=== PATIENT | female | born 1970 | race Caucasian/White ===

== ENCOUNTER 2017-06-28 20:21 | Inpatient (IN) | payer BC ==
[~2017-06-28] VITALS: Ht 157.5 cm; Wt 64.0 kg
[~2017-06-28 20:21] MED LIST: ALLO100T PO; ASPI81TA3 PO; ATOR10TA65 PO; CITR473S3 PO; CLON-379 PO; ISOS30TA PO
--- NOTE | 2017-06-29 01:35 | ERD ---
ER Documentation Chief Complaint Chief Complaint sent by outside doctor to evaluate abnormal lab results, hx- severe anemia, HPI The patient is a 47-year-old female, presenting to the ER because of abnormal hemoglobin 6.7 and high creatinine 12.3 from the blood drawn on June 26, 2017. She was sent to the ER by her physician yesterday for further evaluation. She complains of tiredness for the last 3 months, denies syncope, near syncope, neck pain, chest pain, abdominal pain, vomiting, dysuria, diarrhea , hematuria, hematochezia. She does not smoke nor drink Past medical history: Hypertension, gout, asthma, chronic kidney disease, dyslipidemia, anemia next Past surgical history one , cholecystectomy ROS All systems reviewed and are negative except as per history of present illness. Medications Home Meds Reported Medications Acetaminophen* (Acetaminophen*) 500 MG Extra Strength Tablet, 500 MG PO Q4H Y for PAIN AND OR ELEVATED TEMP, TAB 06/29/17 Discontinued Reported Medications Clonidine Hcl* (Clonidine Hcl*) 0.1 Mg Tab, 0.1 MG PO TID, TAB 08/03/14 Allopurinol* (Allopurinol*) 100 Mg Tablet, 100 MG PO DAILY, TAB 08/03/14 Atorvastatin Calcium (Atorvastatin Calcium) 10 Mg Tab, 5 MG PO HS, TAB 08/03/14 Citric Acid/Sodium Citrate (Cytra-2 Oral Solution) 473 Ml Solution, 60 ML PO 08/03/14 Discontinued Scripts Isosorbide Mononitrate* (Imdur*) 30 Mg Tabsr, 30 MG PO HS for 60 Days Prov:ANISHA PANDEY 08/04/14 Aspirin (Aspirin) 81 Mg Chew, 81 MG PO DAILY for 60 Days Prov:ANISHA PANDEY 08/04/14 Allergies Allergies: Coded Allergies: No Known Allergies (Unverified Allergy, Unknown, 06/29/17) PMhx/Soc History of Surgery: Yes (CSECTION, BARRON. EAR TUBES) Anesthesia Reaction: No Hx Neurological Disorder: No Hx Respiratory Disorders: Yes (ASTHMA) Hx Cardiac Disorders: Yes (HTN) Hx Psychiatric Problems: No Hx Miscellaneous Medical Probl: Yes (CKD) Hx Alcohol Use: No Hx Substance Use: No Hx Tobacco Use: No Physical Exam Vitals Vital Signs Date Time Temp Pulse Resp B/P Pulse Ox O2 Delivery O2 Flow Rate FiO2 06/29/17 02:14 97.8 105 19 138/86 100 06/29/17 02:14 Nasal Cannula 06/28/17 20:24 97.8 75 20 164/81 100 Physical Exam Const: No acute distress. Head: Atraumatic. Eyes: Normal Conjunctiva. ENT: Normal External Ears, Nose and Mouth. Neck: Full range of motion. No meningismus. Resp: Clear to auscultation bilaterally. Cardio: Regular rate and rhythm. Abd: Soft, non distended, normal bowel sounds, non tender. Skin: No petechiae or rashes. Back: No midline or flank tenderness. Ext: No cyanosis, or edema. Neur: Awake and alert. No focal deficit Psych: Normal Mood and Affect. Result Diagram: 06/29/1715106/29/17151 Results 24 hrs Laboratory Tests Test 06/29/17 01:52 White Blood Count 8.610^3/ul Red Blood Count 2.1810^6/ul Hemoglobin 6.8g/dl Hematocrit 21.1% Mean Corpuscular Volume 96.8fl Mean Corpuscular Hemoglobin 31.2pg Mean Corpuscular Hemoglobin Concent 32.2g/dl Red Cell Distribution Width 13.6% Platelet Count 62860^3/UL Mean Platelet Volume 10.4fl Neutrophils % 67.0% Lymphocytes % 25.7% Monocytes % 4.0% Eosinophils % 2.7% Basophils % 0.3% Nucleated Red Blood Cells % 0.0/100WBC Neutrophils # 5.810^3/ul Lymphocytes # 2.210^3/ul Monocytes # 0.310^3/ul Eosinophils # 0.210^3/ul Basophils # 0.010^3/ul Nucleated Red Blood Cells # 0.010^3/ul Prothrombin Time 14.1Sec Prothrombin Time Ratio 1.1 INR International Normalized Ratio 1.08 Activated Partial Thromboplast Time 29.2Sec Sodium Level 148mmol/L Potassium Level 3.9mmol/L Chloride Level 114mmol/L Carbon Dioxide Level 11mmol/L Anion Gap 27 Blood Urea Nitrogen 96mg/dl Creatinine 14.27mg/dl Glucose Level 93mg/dl Calcium Level 5.3mg/dl Total Bilirubin 0.0mg/dl Direct Bilirubin 0.00mg/dl Indirect Bilirubin 0.0mg/dl Aspartate Amino Transf (AST/SGOT) 18IU/L Alanine Aminotransferase (ALT/SGPT) 23IU/L Alkaline Phosphatase 148IU/L Total Protein 8.7g/dl Albumin 4.5g/dl Globulin 4.20g/dl Albumin/Globulin Ratio 1.07 Procedures/MDM EKG: Read by emergency physician Rate/Rhythm: Normal Sinus Rhythm 65 beats/min QRS, ST, T-waves: No ST elevation, no T inversion, Prolonged QT Impression: Abnormal EKG MEDICAL MAKING DECISION: The patient is a 39-year-old female, presenting with acute on chronic kidney disease, severe anemia, hypocalcemia, hypernatremia. She was treated with 2 unit of packed red blood cell. The differential diagnoses considered include but are not limited to gastritis, peptic ulcer disease, esophageal varices, Janine-Armenta tear, carcinoma, polyp, hemorrhoid, fissure, diverticulosis, angiodysplasia. Departure Diagnosis: Primary Impression: Anemia Additional Impressions: Acute renal failure superimposed on chronic kidney disease Hypocalcemia Hypernatremia Condition: Stable Comments I discussed the findings with the patient. I discussed the patient with the on- call hospitalist Dr. Artis at 2:55 AM who was made aware of the lab, the treatment, the patient condition. The patient is admitted to [facility] Frazier MD Jun 29, 2017 01:35
[2017-06-29 02:07] LABS: ABNORMAL IP MESSAGE 1; BASOPHILS % 0.3 % (0.0-2.0); EOSINOPHILS # 0.2 10^3/ul (0.0-0.5); EOSINOPHILS % 2.7 % (0.0-7.0); HEMATOCRIT 21.1 % (37.0-47.0); LYMPHOCYTES # 2.2 10^3/ul (0.8-2.9); LYMPHOCYTES % 25.7 % (15.0-51.0); MEAN CORPUSCULAR HEMOGLOBIN 31.2 pg (29.0-33.0); MEAN CORPUSCULAR HGB CONC 32.2 g/dl (32.0-37.0); MEAN CORPUSCULAR VOLUME 96.8 fl (82.0-101.0); MEAN PLATELET VOLUME 10.4 fl (7.4-10.4); MONOCYTE # 0.3 10^3/ul (0.3-0.9); NEUTROPHIL # 5.8 10^3/ul (1.6-7.5); PLATELET COUNT 152 10^3/UL (140-415); RED BLOOD COUNT 2.18 10^6/ul (4.20-5.40); RED CELL DISTRIBUTION WIDTH 13.6 % (11.5-14.5); WHITE BLOOD COUNT 8.6 10^3/ul (4.8-10.8)
[2017-06-29 02:16] LABS: HEMOGLOBIN 6.8 g/dl (12.0-16.0); POSITIVE DIFF @See below
[2017-06-29 02:26] LABS: PT RATIO 1.1
[2017-06-29 02:28] LABS: PARTIAL THROMBOPLASTIN TIME 29.2 Sec (25.0-35.0)
[2017-06-29 02:29] LABS: ALBUMIN 4.5 g/dl (3.3-4.9); ALBUMIN/GLOBULIN RATIO 1.07; POTASSIUM 3.9 mmol/L (3.5-5.1); TOTAL PROTEIN 8.7 g/dl (6.1-8.1)
[2017-06-29 02:36] LABS: CALCIUM 5.3 mg/dl (8.4-10.2)
[2017-06-29 02:38] LABS: CREATININE 14.27 mg/dl (0.44-1.00)
[2017-06-29 02:46] LABS: INR 1.08; PROTIME 14.1 Sec (12.2-14.2)
[2017-06-29] MEDS ORDERED: ACET-141 PO (02:46)
[2017-06-29 03:28] VITALS: TEMP 97.8
[2017-06-29 03:54] VITALS: Ht 157.5 cm; Wt 64.0 kg
[2017-06-29 04:40] VITALS: BP 131/69; PULSE 70
[2017-06-29] MEDS ORDERED: ACETAMINOPHEN 325 MG TAB PO PRN (06:00)
[2017-06-29] MEDS ORDERED: CALCIUM GLUCONATE 10% 2 GM in SOD CHLORIDE 0.9% 100 ML IVPB ONE (06:00)
[2017-06-29] MEDS ORDERED: NACL 0.9% 3 ML SYG IV SCH (06:00)
[2017-06-29] MEDS ORDERED: ONDANSETRON 4 MG INJ IV PRN (06:00)
[2017-06-29] MEDS ORDERED: SOD CHLORIDE 0.9% 500 ML IV ONE (06:00)
[2017-06-29] MEDS: PANTOPRAZOLE (EC) 40 MG TAB PO SCH (06:07)
[2017-06-29 07:50] VITALS: BP 145/69; RESP 18
--- NOTE | 2017-06-29 08:57 | HP ---
Date/Time of Note Date/Time of Note DATE: 06/29/17 TIME: 08:46 Assessment/Plan VTE Prophylaxis VTE Prophylaxis Intervention: SCD's Lines/Catheters IV [facility]from [facility] Assessment/Plan Chief Complaint/Hosp Course This is a 39-year-old female being admitted to the telemetry floor for: #1 uremia: Patient does not appear encephalopathic at this time. BUN and creatinine are 96/14.2 potassium was within acceptable values at this time. Will consult nephrology and vascular surgery for likely urgent dialysis access and dialysis. #2 polycystic kidney disease: Patient currently right now is a BUN/creatinine of 96/14.2 patient apparently was not aware of this. Her previous creatinine in 2013 was 3. Again we will consult nephrology. #3 acute on chronic kidney disease: Likely secondary to #2. Will obtain renal ultrasound. Will check urine microscopic studies. Will consult nephrology. Please see #1 and #2. #4 symptomatic anemia: Patient's hemoglobin 6.8. At the current time will transfuse 1 unit PRBC. This likely secondary to #3. Will check iron studies. Patient likely will benefit from Epogen will defer this to nephrology. #5 hypocalcemia: Likely secondary to underlying mineral bone disorder as result of #3. Will give 2 g calcium gluconate IV 1. Will check a parathyroid hormone level. Will defer further treatment to nephrology. #6 asthma: Stable patient currently not on any medications. #7 hypertension: At the current time patient is not on any medications. Will continue monitor blood pressure goal blood pressure of her will be less than 140 /90. #8 gout: We will check a uric acid level. Patient does not appear in any acute flare this time. #9 DVT GI prophylaxis: SCDs, acid cade Further treatment strategy will be implemented as per clinical course Problems: HPI/ROS Admit Date/Time Admit Date/Time Jun 29, 2017 at 02:57 Hx of Present Illness Chief complaint: Abnormal labs The patient is a 47-year-old female, presenting to the ER because of abnormal hemoglobin 6.7 was drawn as an outpatient.. She was sent to the ER by her physician yesterday for further evaluation. She complains of tiredness for the last 3 months, denies syncope, near syncope, neck pain, chest pain, abdominal pain, vomiting, dysuria, diarrhea, hematuria, hematochezia. Medication medications: See MAR allergies: NKDA ROS Const: as per hpi Eyes : No pain discharge or redness or change in visual acuity ENT: No pain, sore throat, congestion, congestion, dysphagia or discharge Respiratory: No shortness of breath, cough, sputum, wheezing, or pleuritic pain Cardiovascular: No chest pain, palpitation, PND, or edema GI : no change in appetite, abdominal pain, nausea, vomiting, diarrhea, constipation, or change in the color his stool Genitourinary: No dysuria, hematuria, flank pain , discharge or CVA tenderness Musculoskeletal: No joint pain, back pain, neck pain, restricted range of motion in neck or joints Skin: No rash, bruising or hives Neuro: No headache, dizziness, syncope, seizure, focal weakness Endocrine: No polyuria, polydipsia, temperature intolerance Psych: No hallucination, depression, anxiety or suicidal ideation D PMH/Family/Social Past Medical History polycystic kidney disease, hypertension, asthma, chronic otitis media, status post left myringotomy with tube placement, as well as right tympanoplasty, using hearing aids Past Surgical History x 1, cholecystectomy Family History Significant Family History: other (Mom: polycystic kidney disease, pacemaker) Social History Alcohol Use: none Smoking Status: Never smoker Drug Use: none Exam/Review of Systems Vital Signs Vitals Vital Signs Date Time Temp Pulse Resp B/P Pulse Ox O2 Delivery O2 Flow Rate FiO2 06/29/17 07:50 98.2 68 18 145/69 100 06/29/17 04:40 Room Air Exam Exam General: Patient is well-developed well-nourished The patient is alert oriented -3 lying comfortably in bed. HEENT: Atraumatic, normocephalic. The pupils are equal, round and reactive. Extraocular motor are intact, left hearing aid in place Neck: Supple with full range of motion. No rigidity or meningismus Chest: Nontender Lungs: Clear to auscultation bilaterally no crackles rales or wheezing Heart: Normal S1-S2, Regular rhythm and rate. Abdomen: Soft , nontender, nondistended , bowel sounds are present. No guarding no rebound tenderness , No masses or organomegaly. No costovertebral temporal angle mass Extremities: Normal to inspection, no edema no cyanosis Neurologic: Normal mental status, speech normal, cranial nerves II through XII are intact, motor and sensory are intact, no focal weakness Labs Result Diagram: 06/29/1715106/29/17151 Medications Medications Current Medications Ondansetron HCl (Zofran Inj) 4 mg Q6H PRN IV NAUSEA AND/OR VOMITING; Start at 06:00 Acetaminophen (Tylenol Tab) 650 mg Q6H PRN PO PAIN LEVEL 1-3 OR FEVER; Start 06/29/17 at 06:00 Pantoprazole (Protonix Tab) 40 mg DAILY@06 PO Last administered on 06/29/17t 06:07; Admin Dose 40 MG; Start 06/29/17 at 06:00 Influenza Virus Vaccine (Fluzone) 0.5 ml ONCE ONCE IM* ; Start 06/30/17 at 09: 00; Stop 06/30/17 at 09:01 ELISEO NUÑEZ Jun 29, 2017 08:57
[2017-06-29 11:01] LABS: ABNORMAL IP MESSAGE 1; ALBUMIN 3.7 g/dl (3.3-4.9); BASOPHILS % 0.4 % (0.0-2.0); CREATININE 13.62 mg/dl (0.44-1.00); EOSINOPHILS # 0.1 10^3/ul (0.0-0.5); EOSINOPHILS % 2.1 % (0.0-7.0); HEMATOCRIT 20.9 % (37.0-47.0); LYMPHOCYTES # 1.6 10^3/ul (0.8-2.9); LYMPHOCYTES % 23.5 % (15.0-51.0); MEAN CORPUSCULAR HEMOGLOBIN 30.8 pg (29.0-33.0); MEAN CORPUSCULAR HGB CONC 32.5 g/dl (32.0-37.0); MEAN CORPUSCULAR VOLUME 94.6 fl (82.0-101.0); MEAN PLATELET VOLUME 10.8 fl (7.4-10.4); MONOCYTE # 0.3 10^3/ul (0.3-0.9); MONOCYTES % 3.9 % (0.0-11.0); NEUTROPHIL # 4.7 10^3/ul (1.6-7.5); NEUTROPHILS % 69.7 % (39.0-77.0); PHOSPHORUS 7.9 mg/dl (2.5-4.9); PLATELET COUNT 117 10^3/UL (140-415); POTASSIUM 4.3 mmol/L (3.5-5.1); RED BLOOD COUNT 2.21 10^6/ul (4.20-5.40); RED CELL DISTRIBUTION WIDTH 13.9 % (11.5-14.5); WHITE BLOOD COUNT 6.7 10^3/ul (4.8-10.8)
[2017-06-29 11:03] LABS: CALCIUM 5.3 mg/dl (8.4-10.2)
[2017-06-29 11:09] LABS: HEMOGLOBIN 6.8 g/dl (12.0-16.0); POSITIVE DIFF @See below
[2017-06-29 11:17] LABS: CHOL/HDL RATIO 4.2 RATIO
[2017-06-29 12:19] LABS: HEMATOCRIT 22.3 % (37.0-47.0); HEMOGLOBIN 7.2 g/dl (12.0-16.0)
--- NOTE | 2017-06-29 14:37 | CONS ---
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 Discussed the need to start kidney replacement therapy with patient. I recommended that she have a tunneled dialysis catheter inserted and start hemodialysis now. I also discussed PD and kidney transplantation. She is reluctant to agree to dialysis now, will discuss with her family and decide tomorrow. # Anemia. s/p transfusion. Check iron studies and start JAVIER. # HTN. BP ok off medication # Hypercalcemia. Start calcium carbonate. Problems: Consultation Date/Type/Reason Admit Date/Time Jun 29, 2017 at 02:57 Type of Consultation: Nephrology Reason for Consultation Renal failue Hx of Present Illness The patient is a 47 year-old female with a history of PCKD/CKD. She reports that she was followed by a sponge packer in the past, but stopped seeing him 2 years ago when he recommended that she start dialysis. She had no follow up until this week when she was seen by her PMD due to blurry vision. She had abnormal labs and was referred to the ED. She is now admitted for severe anemia and renal failure. She has received transfusion of one unit of PRBCs and feels better. Her mother had PCKD, had a renal transplant and was on dialysis. Her sister is also on dialysis with ESRD due to DN. She also has a history of HTN and hyperlipidemia, but has been off medication. She complains of recurrent nausea and has been losing weight. Past Medical History PCKD HTN Asthma Hyperlipidemia Family History Significant Family History: diabetes, renal disease Social History Alcohol Use: none Smoking Status: Former smoker Drug Use: none Exam/Review of Systems Vital Signs Vitals Vital Signs Date Time Temp Pulse Resp B/P Pulse Ox O2 Delivery O2 Flow Rate FiO2 06/29/17 07:50 98.2 68 18 145/69 100 06/29/17 04:40 Room Air Exam Constitutional: alert, oriented Head: atraumatic, normocephalic Neck: supple, No jvd Respiratory: clear to auscultation Cardiovascular: regular rate and rhythm, No murmurs/extra sounds Gastrointestinal: non-tender, soft Extremities: No edema Results Result Diagram: 06/29/17 1150 06/29/17 0937 Results 24 hrs Laboratory Tests Test 06/29/17 01:52 06/29/17 09:37 06/29/17 11:40 06/29/17 11:50 White Blood Count 8.6 # 6.7 # Red Blood Count 2.18 #L 2.21 L Hemoglobin 6.8 #*L 6.8 *L 7.2 L Hematocrit 21.1 #L 20.9 L 22.3 L Mean Corpuscular Volume 96.8 94.6 Mean Corpuscular Hemoglobin 31.2 30.8 Mean Corpuscular Hemoglobin Concent 32.2 32.5 Red Cell Distribution Width 13.6 13.9 Platelet Count 152 117 #L Mean Platelet Volume 10.4 # 10.8 H Neutrophils % 67.0 69.7 Lymphocytes % 25.7 23.5 Monocytes % 4.0 3.9 Eosinophils % 2.7 2.1 Basophils % 0.3 0.4 Nucleated Red Blood Cells % 0.0 0.0 Neutrophils # 5.8 4.7 Lymphocytes # 2.2 1.6 Monocytes # 0.3 0.3 Eosinophils # 0.2 0.1 Basophils # 0.0 0.0 Nucleated Red Blood Cells # 0.0 0.0 Prothrombin Time 14.1 Prothrombin Time Ratio 1.1 INR International Normalized Ratio 1.08 Activated Partial Thromboplast Time 29.2 Sodium Level 148 H 147 H Potassium Level 3.9 4.3 Chloride Level 114 H 118 H Carbon Dioxide Level 11 L 10 L Anion Gap 27 H 23 H Blood Urea Nitrogen 96 H 93 H Creatinine 14.27 H 13.62 H Glucose Level 93 86 Calcium Level 5.3 *L 5.3 *L 5.7 *L Total Bilirubin 0.0 L Direct Bilirubin 0.00 Indirect Bilirubin 0.0 Aspartate Amino Transf (AST/SGOT) 18 Alanine Aminotransferase (ALT/SGPT) 23 Alkaline Phosphatase 148 H Total Protein 8.7 H Albumin 4.5 3.5 Globulin 4.20 H Albumin/Globulin Ratio 1.07 Hemoglobin A1c 5.1 Osmolality 329 H Uric Acid 6.7 Ionized Calcium (Measured) 0.8 L Phosphorus Level 7.9 H Magnesium Level 1.4 L Triglycerides Level 98 Cholesterol Level 94 L LDL Cholesterol, Calculated 52 HDL Cholesterol 22 L Cholesterol/HDL Ratio 4.2 Thyroid Stimulating Hormone (TSH) 3.500 Medications Medications Current Medications Ondansetron HCl (Zofran Inj) 4 mg Q6H PRN IV NAUSEA AND/OR VOMITING; Start at 06:00 Acetaminophen (Tylenol Tab) 650 mg Q6H PRN PO PAIN LEVEL 1-3 OR FEVER; Start 06/29/17 at 06:00 Pantoprazole (Protonix Tab) 40 mg DAILY@06 PO Last administered on 06/29/17t 06:07; Admin Dose 40 MG; Start 06/29/17 at 06:00 Influenza Virus Vaccine (Fluzone) 0.5 ml ONCE ONCE IM* ; Start 06/30/17 at 09: 00; Stop 06/30/17 at 09:01 Epoetin Juan (Epogen (Esrd)) 10,000 units TuThSa@17 SC ; Start 06/29/17 at 17: 00; Status UNV KIMBERLI BRAGG MD Jun 29, 2017 14:37
[2017-06-29 14:40] VITALS: BP 148/67; RESP 18
--- NOTE | 2017-06-29 16:11 | RADRPT ---
PROCEDURE: US bilateral upper extremity arterial system. CLINICAL INDICATION: Bilateral upper extremity pain and swelling. End-stage renal disease. TECHNIQUE: Multiple longitudinal and transverse images of the bilateral upper extremity arterial t ree was obtained with one scale pulsed Doppler, and color Doppler imaging. COMPARISON: None available FINDINGS: The bilateral subclavian artery, axillary artery, and brachial artery are all normal. There is no t hrombus or occlusion. There is no significant stenosis. There is normal triphasic flow throughout bilaterally. Peak systolic velocities are as follows: Right: Subclavian: 107 cm/sec Axillary: 72 cm/sec Brachial: 77 cm/sec Left: Subclavian: 83 cm/sec Axillary: 47 cm/sec Brachial: 62 cm/sec IMPRESSION: 1. Normal bilateral upper extremity arterial system. RPTAT: QQ .Neal Bae MD, MD Date Time Electronically viewed and signed by .Neal Bae MD, MD on 06/29/2017 16:11 .R/
--- NOTE | 2017-06-29 16:13 | RADRPT ---
PROCEDURE: US Bilateral Upper Extremity Veins. CLINICAL INDICATION: Bilateral upper extremity swelling. Venous diameter for dialysis fistula plan bharat. End-stage renal disease. TECHNIQUE: Multiple longitudinal and transverse images of the bilateral upper extremity venous wilver e was obtained with noe scale and color Doppler imaging. COMPARISON: None available FINDINGS: The subclavian veins, axillary, brachial, basilic, and cephalic veins are patent bilaterally. There is normal flow with augmentation and compressibility throughout. There is no thrombus or occlusion. Diameters are as follows: Right arm cephalic upper: 0.14 cm. Right arm cephalic mid: 0.14 cm. Right arm cephalic lower: 0.16 cm. Right forearm cephalic upper: 0.15 cm. Right forearm cephalic mid: 0.15 cm. Right forearm cephalic lower: 0.13 cm. Right arm basilic upper: 0.55 cm. Right arm basilic mid: 0.23 cm. Right arm basilic lower: 0.20 cm. Right forearm basilic upper: 0.17 cm. Right forearm basilic mid: 0.16 cm. Right forearm basilic lower: 0.14 cm. Left arm cephalic upper: 0.20 cm. Left arm cephalic mid: 0.15 cm. Left arm cephalic lower: 0.13 cm. Left forearm cephalic upper: 0.17 cm. Left forearm cephalic mid: 0.15 cm. Left forearm cephalic lower: 0.16 cm. Left arm basilic upper: 0.33 cm. Left arm basilic mid: 0.34 cm. Left arm basilic lower: 0.32 cm. Left forearm basilic upper: 0.25 cm. Left forearm basilic mid: 0.17 cm. Left forearm basilic lower: 0.15 cm. IMPRESSION: 1. Normal venous system of the upper extremities. No evidence of thrombus or occlusion. 2. The diameter of the vessels as indicated above. RPTAT: QQ .Neal Bae MD, Date Time Electronically viewed and signed by .Neal Bae MD, MD on 06/29/2017 16:12 .R/
[2017-06-29] MEDS ORDERED: EPOETIN 10000 UNITS/1 ML INJ (ESRD) SC SCH (17:00)
[2017-06-29] MEDS: CALCIUM CARBONATE 750 MG CHEW TAB PO SCH (18:44)
[2017-06-29 19:52] VITALS: BP 140/77; RESP 20
[2017-06-29 20:30] LABS: ADD UMIC YES; UR ASCORBIC ACID NEGATIVE (NEGATIVE); UR BACTERIA FEW /HPF (NONE SEEN); UR BILIRUBIN (Dip) NEGATIVE (NEGATIVE); UR BLOOD (Dip) 1+ mg/dL (NEGATIVE); UR CLARITY CLEAR (CLEAR); UR COLOR STRAW (YELLOW); UR GLUCOSE (Dip) 1+ mg/dL (NEGATIVE); UR KETONES (Dip) NEGATIVE (NEGATIVE); UR LEUKOCYTE ESTERASE (Dip) 1+ Leu/ul (NEGATIVE); UR NITRITE (Dip) NEGATIVE (NEGATIVE); UR RBC 8 /HPF (0-5); UR SPECIFIC GRAVITY (Dip) 1.008 (1.003-1.030); UR TOTAL PROTEIN (Dip) 2+ mg/dl (NEGATIVE); UR UROBILINOGEN (Dip) NEGATIVE (NEGATIVE)
--- NOTE | 2017-06-30 01:25 | HP ---
DATE OF ADMISSION: 06/29/2017 TYPE OF CONSULTATION: VASCULAR SURGERY CONSULTATION Dear doctors: Ms. Zaman is a 47-year-old female who presented with anemia with hemoglobin of 6.7 and recent history of fatigue and worsening renal function. Patient has had a history of polycystic kidney disease in which she has developed renal failure requiring hemodialysis. Vascular surgery c onsultation was obtained for further evaluation and consideration for dialysis catheter placement. At the moment, the patient denies shortness of breath, chest pain, nausea, vomiting, fever or chills . REVIEW OF SYSTEMS: A 14-point review performed and negative except what is mentioned in the HPI. PAST MEDICAL HISTORY: Entails polycystic kidney disease, chronic kidney disease stage IV to V, hist ory of uremia, anemia of chronic disease, hypocalcemia, asthma, hypertension, gout, chronic otitis m edia. PAST SURGICAL HISTORY: Left myringotomy with tube placement, as well as a right tympanoplasty. Pat srikanthnt has hearing aids. Cholecystectomy. . FAMILY HISTORY: Positive for polycystic kidney disease and mom had a pacemaker. SOCIAL HISTORY: Denies tobacco, alcohol or illicit drug use. PHYSICAL EXAMINATION: GENERAL: Alert and oriented x3, no apparent distress. HEENT: Normocephalic, atraumatic. PERRLA, EOMI. The patient has hearing aids. Mucosa moist. NECK: Supple. No carotid bruit. PULMONARY: Clear to auscultation bilaterally. No crackles. CARDIOVASCULAR: S1, S2 present. No murmurs. ABDOMEN: Soft, nontender, nondistended. Bowel sounds positive. EXTREMITIES: Lower extremities, palpable femoral pulse, palpable pedal pulse. Motor and sensory in tact. Cap refill 2 to 3 seconds. ASSESSMENT AND PLAN: Polycystic kidney disease: It seems the patient's renal function has progress ed to end-stage, requiring most likely hemodialysis. We will schedule the patient for a tunneled pe rmanent hemodialysis catheter and eventual access creation. We will plan to obtain bilateral upper extremity vein mapping in preparation for fistula creation. We will have a cardiology evaluation prior to surgery. Optimize vascular status (BP meds, diet, nutrition, exercise, sugar control, antiplatelets). Discussed findings, plan and management with the patient and she understands. Thank you for allowing us to partake in the care of your patient. Please call with any questions. Dictated By: CEDRIC CARROLL/MANDO SAUCEDA: 06/29/2017 14:14:43 Conf#: [id number] [facility]#: [id number]
[2017-06-30 02:29] VITALS: BP 114/68; RESP 20
[2017-06-30 02:34] VITALS: BP 106/65; RESP 20
[2017-06-30] MEDS: PANTOPRAZOLE (EC) 40 MG TAB PO SCH (06:11)
[2017-06-30 06:19] LABS: BASOPHILS % 0.4 % (0.0-2.0); EOSINOPHILS # 0.1 10^3/ul (0.0-0.5); HEMATOCRIT 22.7 % (37.0-47.0); HEMOGLOBIN 7.2 g/dl (12.0-16.0); LYMPHOCYTES # 1.6 10^3/ul (0.8-2.9); LYMPHOCYTES % 23.6 % (15.0-51.0); MEAN CORPUSCULAR HEMOGLOBIN 30.1 pg (29.0-33.0); MEAN CORPUSCULAR HGB CONC 31.7 g/dl (32.0-37.0); MEAN PLATELET VOLUME 10.7 fl (7.4-10.4); MONOCYTE # 0.3 10^3/ul (0.3-0.9); MONOCYTES % 4.3 % (0.0-11.0); NEUTROPHIL # 4.8 10^3/ul (1.6-7.5); NEUTROPHILS % 69.4 % (39.0-77.0); PLATELET COUNT 120 10^3/UL (140-415); RED BLOOD COUNT 2.39 10^6/ul (4.20-5.40); RED CELL DISTRIBUTION WIDTH 14.2 % (11.5-14.5)
[2017-06-30 06:43] LABS: IRON 68 ug/dl (35-150)
[2017-06-30 06:52] LABS: ALBUMIN 3.7 g/dl (3.3-4.9); POTASSIUM 4.4 mmol/L (3.5-5.1); TOTAL IRON BINDING CAPACITY 277 ug/dl (241-421); TOTAL PROTEIN 7.4 g/dl (6.1-8.1)
[2017-06-30 06:53] LABS: PHOSPHORUS 8.6 mg/dl (2.5-4.9)
[2017-06-30 07:06] LABS: CREATININE 14.2 mg/dl (0.44-1.00)
[2017-06-30 07:07] LABS: CALCIUM 5.9 mg/dl (8.4-10.2)
[2017-06-30 07:51] VITALS: BP 119/69; RESP 18
[2017-06-30 08:08] LABS: FERRITIN 42.5 ng/ml (6.2-137.0)
[2017-06-30] MEDS: CALCIUM CARBONATE 750 MG CHEW TAB PO SCH ×3 (08:45→18:38)
[2017-06-30] MEDS ORDERED: INFLUENZA VIRUS VACCINE 0.5 ML (DISPENSING) IM* ONE (09:00)
[2017-06-30] MEDS ORDERED: CALCIUM GLUCONATE 10% 2 GM in SOD CHLORIDE 0.9% 100 ML IVPB ONE (09:00)
--- NOTE | 2017-06-30 10:46 | PN ---
Date/Time of Note Date/Time of Note DATE: 06/30/17 TIME: 10:45 Assessment/Plan VTE Prophylaxis VTE Prophylaxis Intervention: SCD's Lines/Catheters IV Catheter Type (from [facility]): Saline Lock Urinary Cath still in place: Yes Reason Cath still needed: other (indicate) Assessment/Plan Chief Complaint/Hosp Course 1. End-stage renal disease due to polycystic kidney disease. Patient has significant uremia with metabolic acidosis. Ideally the patient needs hemodialysis. However, the patient is refusing initiation of hemodialysis. The patient wants to have a kidney transplant. Nephrology following the patient. The patient was informed about the seriousness of the condition. The patient still does not want any hemodialysis. The patient wants to remain a full code and wants to make her daughter as a surrogate decision maker in case if the patient's condition deteriorates. 2. Symptomatic anemia. Normocytic and normochromic. No evidence of iron deficiency. Probably secondary to underlying worsening renal function. The patient was started on erythropoietin. 3. Hypocalcemia. Most probably secondary to underlying metabolic bone disease. Will obtain a vitamin D level and PTH level. Continue calcium replacement. 4. Essential hypertension. Blood pressure under goal without treatment. 5. Asthma. No evidence of exacerbation. Monitor. 6. Metabolic acidosis. Most probably secondary to worsening renal function. Management will be deferred to nephrology. 7. Fluids, electrolytes, and nutrition. Renal diet. 8. DVT prophylaxis. Bilateral sequential compression devices. 9. Plan. Continue calcium replacement. Metabolic acidosis management as per nephrology. Continue in house monitoring. Case discussed with Dr. Carter. Problems: Subjective 24 Hr Interval Summary Free Text/Dictation Denies any complaints. Continues to refuse dialysis access placement. Exam/Review of Systems Vital Signs Vitals Vital Signs Date Time Temp Pulse Resp B/P Pulse Ox O2 Delivery O2 Flow Rate FiO2 06/30/17 07:51 98.4 66 18 119/69 99 06/29/17 04:40 Room Air Intake and Output 06/29/17 06/29/17 06/30/17 15:00 23:00 07:00 Intake Total 970 ml 600 ml 120 ml Balance 970 ml 600 ml 120 ml Exam General: Adequately build 47 year-old female lying in bed in no apparent distress. HEENT: Normocephalic, atraumatic. Eyes: Anicteric sclerae, conjunctivae clear. ENT: Nasal septum midline, oral mucosa moist. Neck supple. Respiratory: Bilaterally clear breath sounds. No use of accessory muscles of respiration. No adventitious breath sounds. Cardiovascular: S1, S2 heard. No murmurs or gallops. Abdomen: Soft, nontender, and nondistended. Bowel sounds positive in all 4 quadrants. Genitourinary: Deferred. Extremities: No cyanosis, no clubbing, no edema. Peripheral pulses palpable. Neurologic: Cranial nerves II through XII grossly intact. The patient is awake, alert, and oriented. Skin: Normal skin turgor. No skin rashes. Results Result Diagram: 06/30/1751706/30/17517 Results 24 hrs Laboratory Tests Test 06/29/17 11:40 06/29/17 11:50 06/29/17 18:00 06/30/17 05:18 Calcium Level 5.7 *L 5.9 *L Hemoglobin 7.2 L 7.2 L Hematocrit 22.3 L 22.7 L Urine Color STRAW Urine Clarity CLEAR Urine pH 6.0 Urine Specific [place] 1.008 Urine Ketones NEGATIVE Urine Nitrite NEGATIVE Urine Bilirubin NEGATIVE Urine Urobilinogen NEGATIVE Urine Leukocyte Esterase 1+ H Urine Microscopic RBC 8 H Urine Microscopic WBC 3 Urine Bacteria FEW A Urine Hemoglobin 1+ H Urine Osmolality 288 Urine Random Sodium 97 H Urine Glucose 1+ H Urine Total Protein 2+ H White Blood Count 7.0 Red Blood Count 2.39 L Mean Corpuscular Volume 95.0 Mean Corpuscular Hemoglobin 30.1 Mean Corpuscular Hemoglobin Concent 31.7 L Red Cell Distribution Width 14.2 Platelet Count 120 L Mean Platelet Volume 10.7 H Neutrophils % 69.4 Lymphocytes % 23.6 Monocytes % 4.3 Eosinophils % 2.0 Basophils % 0.4 Nucleated Red Blood Cells % 0.0 Neutrophils # 4.8 Lymphocytes # 1.6 Monocytes # 0.3 Eosinophils # 0.1 Basophils # 0.0 Nucleated Red Blood Cells # 0.0 Sodium Level 148 H Potassium Level 4.4 Chloride Level 119 H Carbon Dioxide Level 9 *L Anion Gap 24 H Blood Urea Nitrogen 93 H Creatinine 14.20 H Glucose Level 77 Phosphorus Level 8.6 H Magnesium Level 1.6 L Iron Level 68 Total Iron Binding Capacity 277 Percent Iron Saturation 25 Ferritin 42.5 Total Bilirubin 0.0 L Direct Bilirubin 0.00 Indirect Bilirubin 0.0 Aspartate Amino Transf (AST/SGOT) 12 L Alanine Aminotransferase (ALT/SGPT) 27 Alkaline Phosphatase 103 Total Protein 7.4 # Albumin 3.7 Globulin 3.70 H Albumin/Globulin Ratio 1.00 Test 06/30/17 05:38 Lab Scanned Report BLOOD TRANSFUSION Medications Medications Current Medications Ondansetron HCl (Zofran Inj) 4 mg Q6H PRN IV NAUSEA AND/OR VOMITING; Start at 06:00 Acetaminophen (Tylenol Tab) 650 mg Q6H PRN PO PAIN LEVEL 1-3 OR FEVER; Start 06/29/17 at 06:00 Pantoprazole (Protonix Tab) 40 mg DAILY@06 PO Last administered on 06/30/17 06:11; Admin Dose 40 MG; Start 06/29/17 at 06:00 Epoetin Juan 83585 units 10,000 units TuThSa@17 SC Last administered on 16:26; Admin Dose 10,000 UNITS; Start 06/29/17 at 17:00 Calcium Gluconate/ Sodium Chloride (Ca Gluc/NS) 120 ml @ 60 mls/hr ONCE ONCE IVPB Last administered on 06/30/17 09:01; Admin Dose 60 MLS/HR; Start at 09:00; Stop 06/30/17 at 10:59 ADALI RIVAS NP Jun 30, 2017 10:46
--- NOTE | 2017-06-30 12:49 | PN ---
Date/Time of Note Date/Time of Note DATE: 06/30/17 TIME: 12:47 Assessment/Plan Lines/Catheters IV Catheter Type (from [facility]): Saline Lock Brown in Place (from [facility]): Yes Assessment/Plan Chief Complaint/Hosp Course -Polycystic kidney disease: It seems the patient's renal function has progressed to end-stage, requiring most likely hemodialysis. Patient refused permanent hemodialysis catheter placement this morning. Will await her progress -Appreciate cardiology evaluation -Optimize vascular status (BP meds, diet, nutrition, exercise, sugar control, antiplatelets). -Discussed findings, plan and management with the patient and she understands. -Thank you for allowing us to partake in the care of your patient. Please call with any questions. Problems: Subjective 24 Hr Interval Summary NO NEW VASCULAR EVENTS OVERNIGHT Exam/Review of Systems Vital Signs Vitals Vital Signs Date Time Temp Pulse Resp B/P Pulse Ox O2 Delivery O2 Flow Rate FiO2 06/30/17 07:51 98.4 66 18 119/69 99 06/29/17 04:40 Room Air Intake and Output 06/29/17 06/29/17 06/30/17 14:59 22:59 06:59 Intake Total 970 ml 600 ml 120 ml Balance 970 ml 600 ml 120 ml Exam Free Text/Dictation GENERAL: Alert and oriented x3, PULMONARY: Clear to auscultation bilaterally CARDIOVASCULAR: S1, S2 present ABDOMEN: Soft, nontender, nondistended. Bowel sounds positive. EXTREMITIES: Lower extremities, palpable femoral pulse, palpable pedal pulse. Motor and sensory intact. Cap refill 2 to 3 seconds. Results Result Diagram: 06/30/17 0518 06/30/17 0518 CEDRIC AKBAR MD Jun 30, 2017 12:49
--- NOTE | 2017-06-30 14:31 | CONS ---
Date/Time of Note Date/Time of Note DATE: 06/30/17 TIME: 14:24 Assessment/Plan Assessment/Plan Chief Complaint/Hosp Course # ESRD due to PCKD. She is refusing dialysis. I again discussed COMM[employer] WORK[employer] options with her at length. I explained that the only option at this time is to start HD. Once stable she will have the option to transition to PD and to have a kidney transplant evaluation. I explained that due to advanced uremia she will not be a transplant candidate until she is stable on dialysis. I also explained that without dialysis she will likely of kidney failure in the near future. # Anemia. s/p transfusion. Iron levels good, continue EPO. # HTN. BP ok off medication # Hypercalcemia. Continue calcium carbonate. Can start Vit D when phos is controlled. Problems: Consultation Date/Type/Reason Admit Date/Time Jun 29, 2017 at 02:57 Initial Consult Date Type of Consultation: Nephrology 24 HR Interval Summary Free Text/Dictation No complaints. Exam/Review of Systems Vital Signs Vitals Vital Signs Date Time Temp Pulse Resp B/P Pulse Ox O2 Delivery O2 Flow Rate FiO2 06/30/17 07:51 98.4 66 18 119/69 99 06/29/17 04:40 Room Air Intake and Output 06/29/17 06/29/17 06/30/17 15:00 23:00 07:00 Intake Total 970 ml 600 ml 120 ml Balance 970 ml 600 ml 120 ml Exam Constitutional: alert Head: normocephalic Neck: supple, No jvd Respiratory: clear to auscultation Cardiovascular: regular rate and rhythm, No murmurs/extra sounds Gastrointestinal: non-tender, soft Extremities: No edema Results Result Diagram: 06/30/17 0518 06/30/17 0518 Results 24 hrs Laboratory Tests Test 06/29/17 18:00 06/30/17 05:18 06/30/17 05:38 Urine Color STRAW Urine Clarity CLEAR Urine pH 6.0 Urine Specific [place] 1.008 Urine Ketones NEGATIVE Urine Nitrite NEGATIVE Urine Bilirubin NEGATIVE Urine Urobilinogen NEGATIVE Urine Leukocyte Esterase 1+ H Urine Microscopic RBC 8 H Urine Microscopic WBC 3 Urine Bacteria FEW A Urine Hemoglobin 1+ H Urine Osmolality 288 Urine Random Sodium 97 H Urine Glucose 1+ H Urine Total Protein 2+ H White Blood Count 7.0 Red Blood Count 2.39 L Hemoglobin 7.2 L Hematocrit 22.7 L Mean Corpuscular Volume 95.0 Mean Corpuscular Hemoglobin 30.1 Mean Corpuscular Hemoglobin Concent 31.7 L Red Cell Distribution Width 14.2 Platelet Count 120 L Mean Platelet Volume 10.7 H Neutrophils % 69.4 Lymphocytes % 23.6 Monocytes % 4.3 Eosinophils % 2.0 Basophils % 0.4 Nucleated Red Blood Cells % 0.0 Neutrophils # 4.8 Lymphocytes # 1.6 Monocytes # 0.3 Eosinophils # 0.1 Basophils # 0.0 Nucleated Red Blood Cells # 0.0 Sodium Level 148 H Potassium Level 4.4 Chloride Level 119 H Carbon Dioxide Level 9 *L Anion Gap 24 H Blood Urea Nitrogen 93 H Creatinine 14.20 H Glucose Level 77 Calcium Level 5.9 *L Phosphorus Level 8.6 H Magnesium Level 1.6 L Iron Level 68 Total Iron Binding Capacity 277 Percent Iron Saturation 25 Ferritin 42.5 Total Bilirubin 0.0 L Direct Bilirubin 0.00 Indirect Bilirubin 0.0 Aspartate Amino Transf (AST/SGOT) 12 L Alanine Aminotransferase (ALT/SGPT) 27 Alkaline Phosphatase 103 Total Protein 7.4 # Albumin 3.7 Globulin 3.70 H Albumin/Globulin Ratio 1.00 Vitamin D 1,25-Dihydroxy 27.5 L Lab Scanned Report BLOOD TRANSFUSION Medications Medications Current Medications Ondansetron HCl (Zofran Inj) 4 mg Q6H PRN IV NAUSEA AND/OR VOMITING; Start at 06:00 Acetaminophen (Tylenol Tab) 650 mg Q6H PRN PO PAIN LEVEL 1-3 OR FEVER; Start 06/29/17 at 06:00 Pantoprazole (Protonix Tab) 40 mg DAILY@06 PO Last administered on 06/30/17 06:11; Admin Dose 40 MG; Start 06/29/17 at 06:00 Epoetin Juan (Epogen (Esrd)) 10,000 units TuThSa@17 SC Last administered on 16:26; Admin Dose 10,000 UNITS; Start 06/29/17 at 17:00 KIMBERLI BRAGG MD Jun 30, 2017 14:31
[2017-06-30 14:45] VITALS: BP 131/76; RESP 18
[2017-06-30] MEDS: NA BICARBONATE 650 MG TAB PO SCH ×2 (15:59→20:11)
--- NOTE | 2017-06-30 19:05 | RADRPT ---
PROCEDURE: XR Chest. CLINICAL INDICATION: Cough TECHNIQUE: Anterior chest x-ray. COMPARISON: 08/04/2014 FINDINGS: The lungs are clear. No pleural effusion identified. There is no evidence of pneumothorax. The cardiomediastinal silhouette is unremarkable. The soft tissues are normal. Osseous structures are unremarkable. IMPRESSION: 1. No acute disease is seen in the chest. RPTAT: QQ .Ethan Granados MD, MD Date Time Electronically viewed and signed by .Ethan Granados MD, on 06/30/2017 19:05 .M/
[2017-06-30 21:00] VITALS: BP 133/70; RESP 18
[2017-07-01 02:45] VITALS: BP 122/63; RESP 16
[2017-07-01] MEDS: PANTOPRAZOLE (EC) 40 MG TAB PO SCH (05:25)
[2017-07-01 06:03] LABS: BASOPHILS % 0.3 % (0.0-2.0); EOSINOPHILS # 0.2 10^3/ul (0.0-0.5); EOSINOPHILS % 2.4 % (0.0-7.0); HEMATOCRIT 21.9 % (37.0-47.0); HEMOGLOBIN 7.1 g/dl (12.0-16.0); LYMPHOCYTES # 1.4 10^3/ul (0.8-2.9); LYMPHOCYTES % 22.7 % (15.0-51.0); MEAN CORPUSCULAR HEMOGLOBIN 30.7 pg (29.0-33.0); MEAN CORPUSCULAR HGB CONC 32.4 g/dl (32.0-37.0); MEAN CORPUSCULAR VOLUME 94.8 fl (82.0-101.0); MEAN PLATELET VOLUME 10.6 fl (7.4-10.4); MONOCYTE # 0.3 10^3/ul (0.3-0.9); MONOCYTES % 4.7 % (0.0-11.0); NEUTROPHIL # 4.3 10^3/ul (1.6-7.5); NEUTROPHILS % 69.4 % (39.0-77.0); PLATELET COUNT 118 10^3/UL (140-415); RED BLOOD COUNT 2.31 10^6/ul (4.20-5.40); RED CELL DISTRIBUTION WIDTH 14.3 % (11.5-14.5); WHITE BLOOD COUNT 6.2 10^3/ul (4.8-10.8)
[2017-07-01 06:33] LABS: MAGNESIUM 1.6 mg/dl (1.7-2.5); PHOSPHORUS 7.2 mg/dl (2.5-4.9)
[2017-07-01 06:44] LABS: ALBUMIN 3.9 g/dl (3.3-4.9); ALBUMIN/GLOBULIN RATIO 1.18; CREATININE 13.99 mg/dl (0.44-1.00); POTASSIUM 4.1 mmol/L (3.5-5.1); TOTAL PROTEIN 7.2 g/dl (6.1-8.1)
[2017-07-01 07:20] VITALS: BP 120/68; RESP 18
[2017-07-01] MEDS: CALCIUM CARBONATE 750 MG CHEW TAB PO SCH ×2 (08:29→13:27)
[2017-07-01] MEDS: NA BICARBONATE 650 MG TAB PO SCH ×2 (08:29→13:27)
--- NOTE | 2017-07-01 08:31 | CONS ---
Date/Time of Note Date/Time of Note DATE: 07/01/17 TIME: 08:26 Assessment/Plan Assessment/Plan Chief Complaint/Hosp Course 1. This patient has end-stage renal disease and needs to start hemodialysis treatment now. She has refused hemodialysis treatment. She understands the consequences of not being dialyzed including getting sick and that she could of renal failure. She says that her mother and her sister are on dialysis and has not been good for them. She says that she is ready to go home. Case management and executive secretary social welfare need to get involved and if patient continues to refuse dialysis then to consider hospice home care. Problems: Consultation Date/Type/Reason Admit Date/Time Jun 29, 2017 at 02:57 Initial Consult Date Type of Consultation: Nephrology 24 HR Interval Summary Free Text/Dictation Patient has no new complaints. She denies shortness of breath. She denies nausea vomiting. Constitutional: no complaints Exam/Review of Systems Vital Signs Vitals Vital Signs Date Time Temp Pulse Resp B/P Pulse Ox O2 Delivery O2 Flow Rate FiO2 07/01/17 07:20 98.5 70 18 120/68 98 06/29/17 04:40 Room Air Intake and Output 06/30/17 06/30/17 07/01/17 15:00 23:00 07:00 Intake Total 120 ml 240 ml Balance 120 ml 240 ml Exam Constitutional: alert, oriented, well developed Respiratory: clear to auscultation, normal air movement Cardiovascular: regular rate and rhythm Gastrointestinal: non-tender, soft Genitourinary - Female: nl external genitalia Musculoskeletal: nl extremities to inspection Results Result Diagram: 07/01/17 0500 07/01/17 0500 Results 24 hrs Laboratory Tests Test 07/01/17 05:00 White Blood Count 6.2 Red Blood Count 2.31 L Hemoglobin 7.1 L Hematocrit 21.9 L Mean Corpuscular Volume 94.8 Mean Corpuscular Hemoglobin 30.7 Mean Corpuscular Hemoglobin Concent 32.4 Red Cell Distribution Width 14.3 Platelet Count 118 L Mean Platelet Volume 10.6 H Neutrophils % 69.4 Lymphocytes % 22.7 Monocytes % 4.7 Eosinophils % 2.4 Basophils % 0.3 Nucleated Red Blood Cells % 0.0 Neutrophils # 4.3 Lymphocytes # 1.4 Monocytes # 0.3 Eosinophils # 0.2 Basophils # 0.0 Nucleated Red Blood Cells # 0.0 Sodium Level 147 H Potassium Level 4.1 Chloride Level 117 H Carbon Dioxide Level 10 L Anion Gap 24 H Blood Urea Nitrogen 91 H Creatinine 13.99 H Glucose Level 77 Calcium Level 6.0 L Phosphorus Level 7.2 H Magnesium Level 1.6 L Total Bilirubin 0.0 L Direct Bilirubin 0.00 Indirect Bilirubin 0.0 Aspartate Amino Transf (AST/SGOT) 11 L Alanine Aminotransferase (ALT/SGPT) 22 Alkaline Phosphatase 101 Total Protein 7.2 Albumin 3.9 Globulin 3.30 H Albumin/Globulin Ratio 1.18 Medications Medications Current Medications Ondansetron HCl (Zofran Inj) 4 mg Q6H PRN IV NAUSEA AND/OR VOMITING; Start at 06:00 Acetaminophen (Tylenol Tab) 650 mg Q6H PRN PO PAIN LEVEL 1-3 OR FEVER; Start 06/29/17 at 06:00 Pantoprazole (Protonix Tab) 40 mg DAILY@06 PO Last administered on 07/01/17 05:25; Admin Dose 40 MG; Start 06/29/17 at 06:00 Epoetin Juan (Epogen (Esrd)) 10,[facility] [place] Last administered on 16:26; Admin Dose 10,000 UNITS; Start 06/29/17 at 17:00 Sodium Bicarbonate (Sodium Bicarbonate Tab) 650 mg TID PO Last administered on 06/30/17 20:11; Admin Dose 650 MG; Start 06/30/17 at 15:00 BRANDO WEST MD Jul 01, 2017 08:31
[2017-07-01] MEDS ORDERED: MAGNESIUM SULFATE 2 GM/50 ML 50 ML IVPB SCH (10:00)
[2017-07-01 13:01] VITALS: BP 147/80; RESP 20
--- NOTE | 2017-07-01 14:16 | PN ---
Date/Time of Note Date/Time of Note DATE: 07/01/17 TIME: 14:08 Assessment/Plan VTE Prophylaxis VTE Prophylaxis Intervention: SCD's Lines/Catheters IV Catheter Type (from [facility]): Saline Lock Urinary Cath still in place: Yes Assessment/Plan Chief Complaint/Hosp Course Assessment and plan 1. End-stage renal disease secondary to polycystic kidney disease. Patient with uremia and metabolic acidosis. Patient seen by spanish speaking babysitter and advised for dialysis. Patient did have lengthy conversation with consults as well as myself and social services designee about patient's disease process. Patient is competent and did report full understanding of her disease process. At this time patient is requesting to have a kidney transplant but refusing any dialysis at this time. Patient wishes to remain full code. Continue full CODE STATUS. Patient did report that she is going to reconsider possibility of dialysis at this time. Will follow up. 2. Symptomatic anemia. Likely secondary to worsening renal function. Continue erythropoietin per spanish speaking babysitter. 3. Hypocalcemia. Continue with spanish speaking babysitter recommendations. Calcium to be repleted as needed. 4. Essential hypertension. Stable at present. Monitor off blood pressure medication. 5. History of asthma. No active bronchospasm. Monitor. 6. Metabolic acidosis secondary to #1. Continue to monitor. Patient refusing dialysis at this present time Disposition plan: After lengthy discussion with the patient and social services designee patient will reconsider possibility of dialysis. Will follow up with recommendations. We will follow-up with her. Discussed plan of care with Dr. Brownlee Problems: Subjective 24 Hr Interval Summary Free Text/Dictation Seen alert and oriented at this time. No reports of pain. Reports comfortable at present. Exam/Review of Systems Vital Signs Vitals Vital Signs Date Time Temp Pulse Resp B/P Pulse Ox O2 Delivery O2 Flow Rate FiO2 07/01/17 13:01 97.9 67 20 147/80 100 06/29/17 04:40 Room Air Intake and Output 06/30/17 06/30/17 07/01/17 15:00 23:00 07:00 Intake Total 120 ml 240 ml Balance 120 ml 240 ml Exam Constitutional: alert, oriented Psych: nl mood/affect Head: normocephalic Neck: non-tender, supple Respiratory: clear to auscultation Cardiovascular: regular rate and rhythm Gastrointestinal: non-tender, soft Musculoskeletal: nl extremities to inspection, nl gait and stance Extremities: normal pulses Neurological: EDGE STAINER II-XII intact, nl mental status, nl speech Skin: nl turgor Results Result Diagram: 07/01/17 0500 07/01/17 0500 Results 24 hrs Laboratory Tests Test 07/01/17 05:00 White Blood Count 6.2 Red Blood Count 2.31 L Hemoglobin 7.1 L Hematocrit 21.9 L Mean Corpuscular Volume 94.8 Mean Corpuscular Hemoglobin 30.7 Mean Corpuscular Hemoglobin Concent 32.4 Red Cell Distribution Width 14.3 Platelet Count 118 L Mean Platelet Volume 10.6 H Neutrophils % 69.4 Lymphocytes % 22.7 Monocytes % 4.7 Eosinophils % 2.4 Basophils % 0.3 Nucleated Red Blood Cells % 0.0 Neutrophils # 4.3 Lymphocytes # 1.4 Monocytes # 0.3 Eosinophils # 0.2 Basophils # 0.0 Nucleated Red Blood Cells # 0.0 Sodium Level 147 H Potassium Level 4.1 Chloride Level 117 H Carbon Dioxide Level 10 L Anion Gap 24 H Blood Urea Nitrogen 91 H Creatinine 13.99 H Glucose Level 77 Calcium Level 6.0 L Phosphorus Level 7.2 H Magnesium Level 1.6 L Total Bilirubin 0.0 L Direct Bilirubin 0.00 Indirect Bilirubin 0.0 Aspartate Amino Transf (AST/SGOT) 11 L Alanine Aminotransferase (ALT/SGPT) 22 Alkaline Phosphatase 101 Total Protein 7.2 Albumin 3.9 Globulin 3.30 H Albumin/Globulin Ratio 1.18 Medications Medications Current Medications Ondansetron HCl (Zofran Inj) 4 mg Q6H PRN IV NAUSEA AND/OR VOMITING; Start at 06:00 Acetaminophen (Tylenol Tab) 650 mg Q6H PRN PO PAIN LEVEL 1-3 OR FEVER; Start 06/29/17 at 06:00 Pantoprazole (Protonix Tab) 40 mg DAILY@06 PO Last administered on 07/01/17 05:25; Admin Dose 40 MG; Start 06/29/17 at 06:00 Epoetin Juan (Epogen (Esrd)) 10,000 units TuThSa@17 SC Last administered on 16:26; Admin Dose 10,000 UNITS; Start 06/29/17 at 17:00 Sodium Bicarbonate (Sodium Bicarbonate Tab) 650 mg TID PO Last administered on 07/01/17 13:27; Admin Dose 650 MG; Start 06/30/17 at 15:00 RADHA EVANS Jul 01, 2017 14:16
--- NOTE | 2017-07-01 16:14 | PDOCDIS ---
Discharge Instructions DIAGNOSIS Discharge Diagnosis 1. End-stage renal disease secondary to polycystic kidney disease. 2. anemia secondary to ESRD 3. Hypocalcemia 4. Essential hypertension 5. History of asthma. 6. Metabolic acidosis secondary to #1 CONDITION Patient Condition: Guarded HOME CARE INSTRUCTIONS: Special Diet: renal FOLLOW UP/APPOINTMENTS Follow-up Plan 1. Follow up with your primary care provider in 3 days 2. Follow up with Dr. Coffman within one week RADHA EVANS Jul 01, 2017 16:14
[2017-07-01 18:26] LABS: PTH CALCIUM 5.7 mg/dL (8.6-10.2)
[2017-07-02 20:37] LABS: PTH CALCIUM 6.5 mg/dL (8.6-10.2)
== END 2017-07-01 16:55 | disposition home or self-care (01) | DRG 683 ==
LOC: E/R 20:21 → MS2 06-29 02:57
PROVIDERS: ADMIT Family Medicine; ATTEND Family Medicine
PROC: 30233N1 Transfusion of Nonautologous Red Blood Cells into Peripheral Vein, Percutaneous Approach (ICD-10-PCS; principal; 2017-06-29)
DX: N17.9 Acute kidney failure, unspecified (principal); E87.0 Hyperosmolality and hypernatremia; E87.2 Acidosis; I12.0 Hypertensive chronic kidney disease with stage 5 chronic kidney disease or end stage renal disease; Q61.3 Polycystic kidney, unspecified; N18.6 End stage renal disease; E83.51 Hypocalcemia; J45.909 Unspecified asthma, uncomplicated; M1A.9XX0 Chronic gout, unspecified, without tophus (tophi); E78.5 Hyperlipidemia, unspecified; D63.1 Anemia in chronic kidney disease; Z53.29 Procedure and treatment not carried out because of patient's decision for other reasons; Z90.49 Acquired absence of other specified parts of digestive tract
CPT/HCPCS: 36415; 36430; 71010; 80053; 80061; 80069; 81001; 82040; 82306; 82310; 82330; 82652; 82728; 83036; 83540; 83735; 83930; 83935; 83970; 84100; 84300; 84443; 84560; 85014; 85018; 85025; 85610; 85730; 86850; 86900; 86901; 86920; 87086; 90686; 93005; 93923; 93970; J0610; J3475; J7040; P9016; Q4081

== ENCOUNTER 2019-05-02 09:59 | Inpatient (IN) | payer BC ==
[2019-05-02] VITALS (24 sets, daily range): BP systolic 112–177; BP diastolic 57–105; PULSE 65–92; RESP 14–24; Ht 160 cm; Wt 55.8 kg
[~2019-05-02] VITALS: Ht 160 cm; Wt 55.8 kg
[~2019-05-02 09:59] MED LIST changes: +ACET-141 PO; -ALLO100T PO; -ASPI81TA3 PO; -ATOR10TA65 PO; +CALC200T26 PO; +CHOL200073 PO; -CITR473S3 PO; -CLON-379 PO; -ISOS30TA PO; +NEPH PO
[2019-05-02] MEDS ORDERED: SOD CHLORIDE 0.9% 0 ML IV ONE (10:55)
[2019-05-02] MEDS ORDERED: HYDROCODONE/APAP (5/325) TAB PO ONE (11:00)
[2019-05-02] MEDS ORDERED: CALCIUM GLUCONATE 10% 1 GM in DEXTROSE 5% 100 ML IVPB ONE (11:30)
[2019-05-02] MEDS ORDERED: MAGNESIUM SULFATE 1 GM/D5W 100 ML IVPB ONE (11:30)
[2019-05-02] MEDS ORDERED: ACETAMINOPHEN 325 MG TAB PO PRN (12:30)
[2019-05-02] MEDS ORDERED: ONDANSETRON 4 MG INJ IV PRN (12:30)
[2019-05-02] MEDS: SODIUM BICARBONATE IN D5W 1,000 ML IV SCH (12:54)
[2019-05-02] MEDS ORDERED: DEXTROSE 50% 50 ML SYRINGE IV PRN ×2 (13:30)
[2019-05-02] MEDS ORDERED: INSULIN HUMAN REGULAR 100 UNIT in SOD CHLORIDE 0.9% 99 ML IV SCH (13:30)
[2019-05-02] MEDS ORDERED: ACETAMINOPHEN 650MG/20.3ML CUP PO PRN (13:30)
[2019-05-02] MEDS ORDERED: ALBUTEROL/IPRATROPIUM (NEB) 3 ML AMP NEB PRN (13:30)
[2019-05-02] MEDS: ACCU-CHEK XX SCH ×3 (13:30→19:45)
[2019-05-02] MEDS ORDERED: SEVELAMER CARBONATE 0.8 GM PKT GTB ONE (16:00)
[2019-05-02] MEDS: MANNITOL 25% 50 ML INJ IV* ONE ×4 (19:45→22:10)
[2019-05-02] MEDS ORDERED: morphine 2 MG INJ IV PRN (20:00)
[2019-05-02] MEDS: ONDANSETRON 4 MG INJ IV PRN (21:26)
[2019-05-02] MEDS: HEPARIN 1000 UNITS/ML 10 ML INJ CATHETER PRN (23:46)
[2019-05-03] VITALS (35 sets, daily range): BP systolic 113–163; BP diastolic 63–97; PULSE 62–94; RESP 9–21
[2019-05-03] MEDS: SODIUM BICARBONATE IN D5W 1,000 ML IV SCH ×2 (06:32→21:31)
[2019-05-03] MEDS: PANTOPRAZOLE 40 MG INJ IV SCH (06:32)
[2019-05-03] MEDS: POTASSIUM CHLORIDE (SR) 20 MEQ TAB PO ONE ×2 (07:00→07:39)
[2019-05-03] MEDS: ONDANSETRON 4 MG INJ IV PRN ×2 (07:43→14:53)
[2019-05-03] MEDS: CALCIUM GLUCONATE 10% 2 GM in DEXTROSE 5% 100 ML IVPB ONE ×2 (07:44→08:09)
[2019-05-03] MEDS ORDERED: SOD CHLORIDE 0.9% 250 ML IV* ONE ×2 (07:55→10:38)
[2019-05-03] MEDS ORDERED: MAGNESIUM SULFATE 2 GM/50 ML 50 ML IVPB ONE ×2 (08:00→11:00)
[2019-05-03] MEDS ORDERED: MANNITOL 25% 50 ML INJ IV* SCH (08:30)
[2019-05-03] MEDS: CALCITRIOL 1 MCG INJ IV SCH (09:40)
[2019-05-03] MEDS: POTASSIUM CHLORIDE 50 ML IVPB SCH ×2 (12:34→14:53)
[2019-05-03] MEDS: HEPARIN 1000 UNITS/ML 10 ML INJ CATHETER PRN (16:04)
[2019-05-03] MEDS ORDERED: DIPHENHYDRAMINE 50 MG CAP PO PRN (23:00)
[2019-05-03] MEDS: POTASSIUM CHLORIDE 100 ML IVPB SCH (23:01)
[2019-05-04] VITALS (18 sets, daily range): BP systolic 121–163; BP diastolic 61–95; PULSE 63–77; RESP 16–20
[2019-05-04] MEDS ORDERED: PHENAZOPYRIDINE 100 MG TAB PO PRN (00:30)
[2019-05-04] MEDS: POTASSIUM CHLORIDE 100 ML IVPB SCH (01:37)
[2019-05-04] MEDS: SODIUM BICARBONATE IN D5W 1,000 ML IV SCH (03:30)
[2019-05-04] MEDS: EUCERIN 113 GM CR TOP SCH ×3 (03:33→21:32)
[2019-05-04] MEDS: CEFTRIAXONE 1 GM/50 ML (PMX) 50 ML IVPB SCH (03:34)
[2019-05-04] MEDS: PANTOPRAZOLE 40 MG INJ IV SCH (05:26)
[2019-05-04] MEDS ORDERED: MAGNESIUM SULFATE 2 GM/50 ML 50 ML IVPB ONE (08:30)
[2019-05-04] MEDS ORDERED: CALCIUM GLUCONATE 10% 2 GM in DEXTROSE 5% 100 ML IVPB ONE (09:00)
[2019-05-04] MEDS ORDERED: POTASSIUM CHLORIDE (SR) 20 MEQ TAB PO SCH (09:00)
[2019-05-04] MEDS ORDERED: SODIUM BICARBONATE IN D5W 1,000 ML IV SCH (10:00)
[2019-05-04] MEDS: CALCITRIOL 1 MCG INJ IV SCH (10:07)
[2019-05-04] MEDS: CALCIUM CARBONATE 500 MG CHEW TAB PO SCH ×3 (10:07→21:33)
[2019-05-04] MEDS ORDERED: MANNITOL 25% 50 ML INJ IV* ONE (16:30)
[2019-05-04] MEDS ORDERED: SODIUM BICARBONATE (IV ADD) 150 MEQ in DEXTROSE 5% 850 ML IV SCH (16:50)
[2019-05-04] MEDS ORDERED: ALTEPLASE (CATHFLO) 2 MG INJ CATHETER ONE (18:00)
[2019-05-04] MEDS ORDERED: LEVETIRACETAM IV 750 MG in DEXTROSE 5% 100 ML IVPB ONE (21:30)
[2019-05-04] MEDS ORDERED: LABETALOL HCL 20MG INJ IV ONE (21:30)
[2019-05-04] MEDS: COLLAGENASE 5 GM (UD JAR) TOP SCH (21:31)
[2019-05-04] MEDS ORDERED: LORAZEPAM 2 MG INJ IV PRN ×2 (22:00)
[2019-05-04] MEDS ORDERED: POTASSIUM CHLORIDE 100 ML IVPB ONE (22:30)
[2019-05-05] VITALS: BP_SYST 114; BP_SYST 156; BP_DIAS 53; BP_DIAS 79; PULSE 77; PULSE 95; RESP 18; RESP 20
[2019-05-05] MEDS ORDERED: LORAZEPAM 2 MG INJ IV ONE (00:30)
[2019-05-05] MEDS: CEFTRIAXONE 1 GM/50 ML (PMX) 50 ML IVPB SCH (00:31)
[2019-05-05 03:34] VITALS: BP 119/76; PULSE 84; RESP 18
[2019-05-05] MEDS: PANTOPRAZOLE 40 MG INJ IV SCH (05:41)
[2019-05-05 07:36] VITALS: BP 127/78; PULSE 87; RESP 18
[2019-05-05] MEDS ORDERED: CALCIUM ACETATE 667 MG CAP PO SCH (07:55)
[2019-05-05] MEDS ORDERED: CALCITRIOL 0.25 MCG CAP PO SCH (09:00)
[2019-05-05] MEDS: CALCITRIOL 1 MCG INJ IV SCH (09:07)
[2019-05-05] MEDS: CALCIUM CARBONATE 500 MG CHEW TAB PO SCH ×3 (09:07→18:49)
[2019-05-05] MEDS: HYDROCORTISONE 2.5% 28.35 GM OINT TOP SCH (09:10)
[2019-05-05] MEDS: COLLAGENASE 5 GM (UD JAR) TOP SCH ×2 (09:11→20:42)
[2019-05-05] MEDS: EUCERIN 113 GM CR TOP SCH ×2 (09:13→20:42)
[2019-05-05] MEDS ORDERED: CALCIUM GLUCONATE 10% 2 GM in DEXTROSE 5% 100 ML IVPB ONE (11:00)
[2019-05-05 12:27] VITALS: BP 122/72; PULSE 86; RESP 18
[2019-05-05 15:30] VITALS: BP 127/70; PULSE 83; RESP 18
[2019-05-05 20:14] VITALS: BP 117/71; PULSE 82; RESP 16
[2019-05-06] VITALS (20 sets, daily range): BP systolic 111–168; BP diastolic 69–104; PULSE 69–94; RESP 16–20
[2019-05-06] MEDS: CEFTRIAXONE 1 GM/50 ML (PMX) 50 ML IVPB SCH (00:23)
[2019-05-06] MEDS: PANTOPRAZOLE 40 MG INJ IV SCH (06:02)
[2019-05-06] MEDS: CALCIUM CARBONATE 500 MG CHEW TAB PO SCH ×4 (09:22→21:30)
[2019-05-06] MEDS: EUCERIN 113 GM CR TOP SCH ×2 (09:22→21:30)
[2019-05-06] MEDS: CALCITRIOL 1 MCG INJ IV SCH (09:22)
[2019-05-06] MEDS: HYDROCORTISONE 2.5% 28.35 GM OINT TOP SCH (09:23)
[2019-05-06] MEDS: COLLAGENASE 5 GM (UD JAR) TOP SCH ×2 (09:23→21:30)
[2019-05-06] MEDS ORDERED: LIDOCAINE 1% (MDV) 20 ML INJ ONE (13:16)
[2019-05-06] MEDS ORDERED: MIDAZOLAM 1 MG/ML 2 ML INJ ONE (13:20)
[2019-05-06] MEDS ORDERED: HEPARIN 1000 UNITS/ML 10 ML INJ ONE (13:20)
[2019-05-06] MEDS ORDERED: FENTAnyl 50 MCG/ML VIAL ONE (13:20)
[2019-05-06] MEDS: ONDANSETRON 4 MG INJ IV PRN (17:12)
[2019-05-06] MEDS: EPOETIN ALFA-EPBX (ESRD) 10,000 UNIT/ML VIAL SC SCH (18:34)
[2019-05-06] MEDS: HEPARIN 1000 UNITS/ML 10 ML INJ CATHETER SCH (18:39)
[2019-05-07] VITALS (7 sets, daily range): BP systolic 109–139; BP diastolic 65–82; PULSE 67–87; RESP 16–21
[2019-05-07] MEDS: CEFTRIAXONE 1 GM/50 ML (PMX) 50 ML IVPB SCH (00:45)
[2019-05-07] MEDS: PANTOPRAZOLE 40 MG INJ IV SCH (05:49)
[2019-05-07] MEDS: CALCITRIOL 1 MCG INJ IV SCH (08:30)
[2019-05-07] MEDS: CALCIUM CARBONATE 500 MG CHEW TAB PO SCH ×4 (08:30→21:36)
[2019-05-07] MEDS: COLLAGENASE 5 GM (UD JAR) TOP SCH ×2 (08:30→21:35)
[2019-05-07] MEDS: HYDROCORTISONE 2.5% 28.35 GM OINT TOP SCH (08:30)
[2019-05-07] MEDS: EUCERIN 113 GM CR TOP SCH ×2 (08:31→21:38)
[2019-05-07] MEDS ORDERED: ZOLPIDEM 5 MG TAB PO ONE (21:00)
[2019-05-07] MEDS ORDERED: GENTAMICIN IV PER PHARMACY XX ONE (23:30)
[2019-05-08] VITALS (17 sets, daily range): BP systolic 90–123; BP diastolic 61–81; PULSE 64–95; RESP 18–21
[2019-05-08] MEDS: CEFTRIAXONE 1 GM/50 ML (PMX) 50 ML IVPB SCH (00:34)
[2019-05-08] MEDS: PANTOPRAZOLE 40 MG INJ IV SCH (05:38)
[2019-05-08] MEDS ORDERED: GENTAMICIN 70 MG in DEXTROSE 5% 50 ML IVPB SCH (06:00)
[2019-05-08] MEDS: HYDROCORTISONE 2.5% 28.35 GM OINT TOP SCH (08:17)
[2019-05-08] MEDS: CALCITRIOL 1 MCG INJ IV SCH (08:17)
[2019-05-08] MEDS: COLLAGENASE 5 GM (UD JAR) TOP SCH (08:17)
[2019-05-08] MEDS: CALCIUM CARBONATE 500 MG CHEW TAB PO SCH ×3 (08:17→16:30)
[2019-05-08] MEDS: EUCERIN 113 GM CR TOP SCH (08:18)
[2019-05-08] MEDS ORDERED: CHOLECALCIFEROL 2,000 UNIT CAP PO SCH (09:30)
[2019-05-08] MEDS: HEPARIN 1000 UNITS/ML 10 ML INJ CATHETER SCH (12:57)
[2019-05-08] MEDS: EPOETIN ALFA-EPBX (ESRD) 10,000 UNIT/ML VIAL SC SCH (16:31)
[2019-05-08] MEDS ORDERED: ZOLPIDEM 5 MG TAB PO ONE (21:00)
== END 2019-05-08 19:00 | disposition home health service (06) | DRG 673 ==
LOC: E/R 09:59 → ICU 12:26 → CANRESERV 13:11 → EDBEDREQSVC 14:16 → CANRESERV 16:44 → TEL 05-03 22:20
PROVIDERS: ADMIT Internal Medicine; ATTEND Family Medicine
PROC: 06HM33Z Insertion of Infusion Device into Right Femoral Vein, Percutaneous Approach (ICD-10-PCS; 2019-05-02)
PROC: 30233N1 Transfusion of Nonautologous Red Blood Cells into Peripheral Vein, Percutaneous Approach (ICD-10-PCS; 2019-05-02)
PROC: 5A1D70Z Performance of Urinary Filtration, Intermittent, Less than 6 Hours Per Day (ICD-10-PCS; 2019-05-02)
PROC: 0JH63XZ Insertion of Tunneled Vascular Access Device into Chest Subcutaneous Tissue and Fascia, Percutaneous Approach (ICD-10-PCS; principal; 2019-05-06)
PROC: 02H633Z Insertion of Infusion Device into Right Atrium, Percutaneous Approach (ICD-10-PCS; 2019-05-06)
PROC: B244ZZZ Ultrasonography of Right Heart (ICD-10-PCS; 2019-05-06)
DX: I12.0 Hypertensive chronic kidney disease with stage 5 chronic kidney disease or end stage renal disease (principal); N18.6 End stage renal disease; E87.2 Acidosis; Q61.3 Polycystic kidney, unspecified; N39.0 Urinary tract infection, site not specified; N25.81 Secondary hyperparathyroidism of renal origin; E87.8 Other disorders of electrolyte and fluid balance, not elsewhere classified; R56.9 Unspecified convulsions; E83.39 Other disorders of phosphorus metabolism; D63.1 Anemia in chronic kidney disease; J45.909 Unspecified asthma, uncomplicated; D69.6 Thrombocytopenia, unspecified; H91.90 Unspecified hearing loss, unspecified ear; B96.20 Unspecified Escherichia coli [E. coli] as the cause of diseases classified elsewhere
CPT/HCPCS: 36415; 36430; 36558; 70450; 70551; 71045; 76700; 76942; 80048; 80053; 80307; 81001; 82306; 82330; 82652; 82728; 82803; 82962; 83540; 83735; 83880; 83970; 84100; 84132; 84484; 85025; 85610; 86704; 86706; 86709; 86803; 86850; 86900; 86901; 86920; 87081; 87086; 87340; 90935; 95819; 96374; 96375; 97110; 97116; 97162; 97530; C1750; C9113; J0610; J0696; J1580; J1644; J1953; J2060; J2150; J2250; J2270; J2405; J2997; J3010; J3475; J3480; J7040; J7070; P9016; Q5105